=== PATIENT | female | born 1985 | race Caucasian/White ===

== ENCOUNTER 2019-03-25 22:42 | Emergency (ER) | payer OTHER ==
[~2019-03-25] VITALS: Ht 170.2 cm; Wt 74.8 kg
[2019-03-25 22:44] VITALS: BP_SYST 107
--- NOTE | 2019-03-25 22:44 | NUR ---
Patient to ER bed 04 to gown for evaluation. Side rails up.
--- NOTE | 2019-03-25 22:50 | NUR ---
Pt came to the ED for generalized weakness and ABD pain for 4 days. Reports pain is 5/10. Reports she has had nausea but denies vomiting. Reported 2 days of diarrhea but has resolved. No other complaints/injuries noted. Will cont. to monitor.
--- NOTE | 2019-03-25 22:55 | NUR ---
ER at bedside examining patient.
--- NOTE | 2019-03-25 23:00 | NUR ---
Pt resting comfortably in bed, no signs of acute distress. Will cont. to monitor.
[2019-03-25 23:23] LABS: BILIRUBIN,URINE NEGATIVE (NEGATIVE); BLOOD, URINE NEGATIVE (NEGATIVE); CLARITY/URINE CLEAR (CLEAR); COLOR,URINE YELLOW (YELLOW); GLUCOSE,URINE NEGATIVE (NEGATIVE); KETONES,URINE NEGATIVE (NEGATIVE); LEUKOCYTE ESTERASE ,URINE NEGATIVE (NEGATIVE); NITRITE, URINE NEGATIVE (NEGATIVE); PH,URINE 6.5 (5.0-8.0); PROTEIN URINE NEGATIVE (NEGATIVE); UROBILINOGEN,URINE 0.2 (0.2-1.0)
[2019-03-25 23:30] LABS: BASOPHILS # (AUTO) 0.1 K/uL (0.0-0.2); BASOPHILS % (AUTO) 0.7 % (0.0-2.0); EOSINOPHILS # (AUTO) 0.1 K/uL (0.0-0.4); EOSINOPHILS % (AUTO) 0.9 % (0.0-4.0); HEMATOCRIT 41.5 % (36-48); HEMOGLOBIN 14.2 g/dL (12.0-16.0); LYMPHOCYTES # (AUTO) 2.1 K/uL (1.0-5.5); MEAN CORPUSCULAR HEMOGLOBIN 32 pg (27-31); MEAN CORPUSCULAR HGB CONC 34 % (32-36); MEAN CORPUSCULAR VOLUME 93 fL (79.0-98.0); MONOCYTES # (AUTO) 0.3 K/uL (0.0-1.0); MONOCYTES % (AUTO) 4.1 % (1.7-9.3); NEUTROPHILS % (AUTO) 66.3 % (40.0-70.0); PLATELET COUNT (AUTO) 189 K/uL (130-430); RED BLOOD CELL COUNT(AUTO) 4.46 MIL/uL (4.2-6.2); RED CELL DISTRIBUTION WIDTH 11.9 % (9.0-15.0); WHITE BLOOD COUNT (AUTO) 7.6 K/uL (4.8-10.8)
[2019-03-25] MEDS ORDERED: NACL 0.9% 1,000 ML IV ONE (23:30)
[2019-03-25] MEDS ORDERED: MAG HYDROX/AL HYDROX/SIMETH 30 ML, DICYCLOMINE HCL 20 MG, LIDOCAINE VISCOUS 2% 15ML (PO... PO ONE ×3 (23:30)
[2019-03-25] MEDS ORDERED: METOCLOPRAMIDE HCL 10 MG/2 ML VIAL IVP ONE (23:30)
[2019-03-25 23:33] LABS: CALCIUM 9.2 mg/dL (8.4-11.0); CREATININE 0.94 mg/dL (0.55-1.30); POTASSIUM 3.5 mmol/L (3.5-5.1)
[2019-03-25 23:39] LABS: ALBUMIN 3.8 g/dL (3.4-4.8); TOTAL BILIRUBIN 0.3 mg/dL (0.0-1.0)
[2019-03-26 01:04] VITALS: BP_SYST 107
--- NOTE | 2019-03-26 01:04 | NUR ---
Patient given written and verbal discharge instructions and verbalizes understanding. ER MD Dr. White discussed with patient the results and treatment provided. Patient in stable condition. ID arm band removed. IV catheter removed intact and dressing applied, no active bleeding. Rx of pepcid and zofran given. Patient educated on pain management and to follow up with PMD. Pain Scale 0/10. Opportunity for questions provided and answered. Medication side effect fact sheet provided.
== END 2019-03-26 01:04 | disposition home or self-care (01) ==
LOC: SED 22:42
DX: R10.13 Epigastric pain (principal); R53.1 Weakness; R51 Headache; Z88.0 Allergy status to penicillin
CPT/HCPCS: 36415; 80053; 81003; 81025; 83690; 85025; 96374; 99283; J2001; J2765; J7030